=== PATIENT | male | born 1980 | race Two or more races ===

== ENCOUNTER 2016-11-15 12:16 | Emergency (ER) | payer OTHER ==
[~2016-11-15] VITALS: Ht 165.1 cm; Wt 61.2 kg
[~2016-11-15 12:16] MED LIST: CEPH-570 PO
[2016-11-15 12:24] VITALS: BP 130/87
[2016-11-15] MEDS ORDERED: LIDOCAINE /MPF 1% VIAL 5 ML VIAL ONE (12:45)
== END 2016-11-15 13:29 | disposition home or self-care (01) ==
LOC: ER 12:21
DX: N61.1 Abscess of the breast and nipple (principal); G82.20 Paraplegia, unspecified; Z88.1 Allergy status to other antibiotic agents
CPT/HCPCS: 10060; 99283; A4606; A6402 ×2; A6407; J3490; Z7610

== ENCOUNTER 2016-11-18 12:48 | Emergency (ER) | payer OTHER ==
[~2016-11-18] VITALS: Ht 165.1 cm; Wt 59.0 kg
[2016-11-18 12:48] VITALS: BP 126/88
== END 2016-11-18 13:21 | disposition home or self-care (01) ==
LOC: ER 12:51
DX: Z48.00 Encounter for change or removal of nonsurgical wound dressing (principal); N61.1 Abscess of the breast and nipple; Z88.1 Allergy status to other antibiotic agents; G82.20 Paraplegia, unspecified
CPT/HCPCS: 99283; A4606; Z7610